=== PATIENT | male | born 1975 | race Two or more races ===

== ENCOUNTER 2019-08-18 06:21 | Day surgery (SDC) | payer OTHER ==
[2019-08-18] VITALS (10 sets, daily range): BP systolic 110–138; BP diastolic 68–86
[~2019-08-18] VITALS: Ht 167.6 cm; Wt 70.3 kg
[~2019-08-18 06:21] MED LIST: ceFAZolin 1gm IVPB IVPB ONE; celeBREX 200mg Cap **SURGERY PATIENTS ONLY ORAL ONE; oxyCONTIN 20mg tab ORAL ONE
--- NOTE | 2019-08-18 07:38 | Operative Note - PDOC ---
Operative Note Operative Note Pre-op Diagnosis: left knee internal derangment Procedure: see op report Post-op Diagnosis: same as pre-op plus Operative Findings: consistent w/pre-op dx studies Anesthesia: MAC Specimen: none Complications: none Condition: stable Estimated Blood Loss: none Implant(s) used?: No Aaorn Carver MD August 18, 2019 07:38
--- NOTE | 2019-08-18 07:38 | Pre-Procedure Note/Attestation ---
Pre-Procedure Note/Attestation Complete Prior to Procedure Planned Procedure: left Procedure Narrative: knee arthroscopy, possible menisectomy, synovectomy, chondroplasty Indications for Procedure Pre-Operative Diagnosis: left knee internal derangment Attestation I attest that I discussed the nature of the procedure; its benefits; risks and complications; and alternatives (and the risks and benefits of such alternatives ), prior to the procedure, with the patient (or the patient's legal b2b outside sales representative). I attest that, if there was a reasonable possibility of needing a blood transfusion, the patient (or the patient's legal b2b outside sales representative) was given the [facility] standardized written summary, pursuant to the [place] Blood Safety Act ([place] Health and Safety Code # 1645, as amended). I attest that I re-evaluated the patient just prior to the surgery and that there has been no change in the patient's H&P, except as documented below: Aaron Carver MD August 18, 2019 07:38
[2019-08-18] MEDS ORDERED: Tylenol #3 tab (300mg/30mg) ORAL PRN (07:45)
[2019-08-18] MEDS ORDERED: HYDROcodone/Acetamin 5/325 tab ORAL PRN (07:45)
[2019-08-18] MEDS ORDERED: D5 1/2NS 1,000 ML IV SCH (07:45)
[2019-08-18] MEDS ORDERED: HYDROmorphone 1mg/ml Carpuject SUBQ PRN (07:45)
[2019-08-18] MEDS ORDERED: Midazolam 2mg/2ml Inj ONE ×2 (08:22→08:35)
[2019-08-18] MEDS ORDERED: fentaNYL 100 mcg/2 mL IV ONE ×2 (08:22→08:35)
[2019-08-18] MEDS ORDERED: NS Irrig 2000ml IRRIG ONE ×2 (08:30→08:55)
[2019-08-18] MEDS ORDERED: LR 1000ml ONE (08:30)
[2019-08-18] MEDS ORDERED: EPINEPHrine 1mg/1ml Amp ONE (08:30)
[2019-08-18] MEDS ORDERED: Bupivacaine 0.25% Inj 30ml INJ ONE (08:31)
[2019-08-18] MEDS ORDERED: Ketorolac 30mg Inj ONE (08:31)
[2019-08-18] MEDS ORDERED: Kenalog-40 1ml Vial ONE (08:31)
[2019-08-18] MEDS ORDERED: Duramorph PF 5mg/10ml amp ONE (08:31)
[2019-08-18] MEDS ORDERED: Lidocaine 1% 10mg/ml/Epi 0.005mg/ml 30ml vial INJ ONE (08:32)
[2019-08-18] MEDS ORDERED: Lidocaine 1% MPF 10mg/ml 5ml ONE (09:13)
--- NOTE | 2019-08-18 09:30 | Immediate Post-Op Evaluation ---
Immediate Post-Op Evalulation Immediate Post-Op Evalulation Procedure: left knee scope Date of Evaluation: August 18, 2019 Time of Evaluation: 09:30 IV Fluids: 300 Blood Pressure Systolic: 120 Blood Pressure Diastolic: 60 Pulse Rate: 80 Respiratory Rate: 14 O2 Sat by Pulse Oximetry: 98 Temperature (Fahrenheit): 98.0 Nausea: No Vomiting: No Patient Status: awake, reacts, patent Hydration Status: adequate Drug: ancef Given Within 1 Hr of Incision: Yes Time Given: 08:45 Elsie Ross CRNA August 18, 2019 09:30
--- NOTE | 2019-08-18 09:31 | Anethesia Preoperative Eval ---
Anesthesia Pre-op PMH/ROS General Date of Evaluation: August 18, 2019 Time of Evaluation: 08:55 Anesthesiologist: denise ASA Score: ASA 1 Mallampati Score Class I : Soft palate, uvula, fauces, pillars visible Class II: Soft palate, uvula, fauces visible Class III: Soft palate, base of uvula visible Class IV: Only hard plate visible Mallampati Classification: Class II Surgeon: melissa Diagnosis: knee pain Surgical Procedure: knee scope Anesthesia History: none Family History: no anesthesia problems Allergies: Coded Allergies: No Known Allergies (Unverified , 08/16/19) Medications: see eMAR Patient NPO?: Yes NPO Date: August 18, 2019 NPO Time: 00:01 Past Medical History Cardiovascular: Denies: HTN, CAD, AK, valve dz, arrhythmia, other Pulmonary: Denies: asthma, COPD, DODIE, other Gastrointestinal/Genitourinary: Denies: GERD, CRI, ESRD, other Neurologic/Psychiatric: Denies: dementia, CVA, depression/anxiety, TIA, other HEENT: Denies: cataract (L), cataract (R), glaucoma, [place] (L), [place] (R), other Hematology/Immune: Denies: anemia, DVT, bleeding disorder, other Musculoskeletal/Integumentary: Denies: OA, RA, DJD, DDD, edema, other PSxH Narrative: spine surgery Anesthesia Pre-op Phys. Exam Physician Exam Last Vital Signs Date Time Temp Pulse Resp B/P (MAP) Pulse Ox O2 Delivery O2 Flow Rate FiO2 08/18/19 07:13 Room Air 08/18/19 07:01 98.8 73 18 138/83 98 Constitutional: NAD Neurologic: CN 2-12 intact Cardiovascular: RRR Respiratory: CTA Gastrointestinal: S/NT/ND Airway Exam Mallampati Classification 2 Mallampati Score: Class II MO: full ROM: full Dentures: no upper, no lower Anesthesia Pre-op A/P Studies Pre-op Studies: EKG - SR Risk Assessment & Plan Plan: general Status Change Before Surgery: No Pre-Antibiotics Drug: ancef Given Within 1 Hr of Incision: Yes Time Given: 08:45 Elsie Ross CRNA August 18, 2019 09:31
[2019-08-18] MEDS ORDERED: DiphenhydrAMINE 50mg/ml Inj ONE (09:53)
[2019-08-18] MEDS ORDERED: DiphenhydrAMINE 50mg/ml Inj IVP SCH (10:00)
--- NOTE | 2019-08-18 11:53 | 48 Hour Post Anesthesia Eval ---
Post Anesthesia Evaluation Procedure: left knee scope Date of Evaluation: August 18, 2019 Time of Evaluation: 11:51 Blood Pressure Systolic: 119 0: 70 Pulse Rate: 70 Respiratory Rate: 15 O2 Sat by Pulse Oximetry: 98 Airway: patent Nausea: No Vomiting: No Hydration Status: adequate Mental Status/LOC: patient returned to baseline Follow-up Care/Observations: na Post-Anesthesia Complications: none Follow-up care needed: N/A Elsie Ross CRNA August 18, 2019 11:53
--- NOTE | 2019-08-18 21:30 | Operative Note - Dictated ---
DATE OF OPERATION: 08/18/2019 PREOPERATIVE DIAGNOSIS: Left knee internal derangement. POSTOPERATIVE DIAGNOSIS: Left knee hypertrophic synovial tissue medial and lateral patellofemoral compartment. SURGEON: Aaron Carver M.D. ANESTHESIA: INDICATION FOR PROCEDURE: The patient is a pleasant gentleman who has had progressive left knee pain he had a positive diagnostic cortisone injection, left knee, recurrent symptoms; therefore he elected to undergo left knee diagnostic arthroscopy, possible synovectomy. Risks, limitations, expectations, and complications of procedure were discussed in detail. All questions were addressed. DESCRIPTION OF PROCEDURE: After informed consent was obtained, the patient was brought to the operating room. The patient was placed under anesthesia. Left leg and knee was prepped and draped in a sterile manner. Time-out was performed. Inferolateral stab incision was then made. Trocar was introduced into the patellofemoral compartment. There was some hypertrophic synovial tissue in patellofemoral compartment. No chondral damage. Medial compartment was entered. It was difficult to visualize the medial compartment given hypertrophic fat pad, synovial tissue. Medial working portal was established. Synovectomy of the anterior portion of the medial compartment extended to intercondylar notch, lateral compartment was performed. The medial compartment was entered, meniscus probed, no chondral damage. No meniscal tear. ACL was intact. Lateral compartment was entered, free of meniscal chondral damage. Excision of fat pad and synovial tissue was completed. Once that was done, the instruments were removed. Portal sites were closed with 3-0 Monocryl sutures. Steri-Strips and a sterile dressing were applied. ESTIMATED BLOOD LOSS: None. COMPLICATIONS: None. SPECIMENS: None. IMPLANTS: None. Aaron Carver M.D. DR: Gudelia JOB#: [id number] CC:
== END 2019-08-18 10:50 | disposition home or self-care (01) ==
LOC: SUR 06:21
DX: M67.262 Synovial hypertrophy, not elsewhere classified, left lower leg (principal)
CPT/HCPCS: 29876; 94003; J0690; J1200; J1885; J2250; J2405; J2704; J3010; J3301; J3490; J7120; 94150